=== PATIENT | female | born 1950 | race Caucasian/White ===

== ENCOUNTER 2021-12-04 20:47 | Emergency (ER) | payer MEDICARE ==
[2021-12-04] MEDS ORDERED: Albuterol/Ipratropium 3.0-0.5 MG/3 ML Neb Soln NEB ONE (20:53)
[2021-12-04] MEDS ORDERED: methylPREDNISolone Sodium Succinate 125 MG/2 ML SDV IM ONE (20:58)
== END 2021-12-04 22:27 | disposition home or self-care (01) ==
LOC: JP.ED 20:47
DX: J18.0 Bronchopneumonia, unspecified organism (principal); Z88.0 Allergy status to penicillin; Z79.899 Other long term (current) drug therapy
CPT/HCPCS: 36415; 71046; 85025; 86140; 94640; 96372; 99285; J2930; J7620